=== PATIENT | male | born 1950 | race Caucasian/White ===

== ENCOUNTER 2019-02-12 09:50 | Day surgery (SDC) | payer MEDICARE, OTHER, SELFPAY ==
[2019-02-05 08:13] VITALS: BMI 29.2
[2019-02-12] VITALS (10 sets, daily range): BP systolic 115–138; BP diastolic 72–91; PULSE 50–70; RESP 9–20; TEMP 36–36.4; O2SAT 94–100; BMI 27.9
[2019-02-12] MEDS: LACTATED RINGERS 1,000 ML 42 ML IV ×2 (10:05→14:21)
[2019-02-12] MEDS: CEFAZOLIN 2 GM/100 ML FROZ.PIGGY IV (12:10)
--- NOTE | 2019-02-12 12:36 | SUR.OPER ---
Supine on padded OR bed, head on pillow, arms secured on padded arm boards at <90 degrees abduction, legs uncrossed, safety belt at thigh, tape over blanket over lower legs.
[2019-02-12] MEDS: BUPIVACAINE 0.25% W/ EPI (PF) 10 ML VIAL 20 ML INJ (12:45)
[2019-02-12] MEDS: VANCOMYCIN 1,000 MG VIAL 1000 MG TOP (13:30)
--- NOTE | 2019-02-12 14:34 | P.OP_ITS ---
Operative Date/Time/Diagnoses Date of procedure: 02/12/19 Time of procedure: 13:00 Pre-op diagnosis: Left inguinal hernia Post-op diagnosis: same Procedure & Clinicians Same procedure as scheduled: Yes (Left inguinal hernia with blown out inguinal floor/large direct defect) Surgeon: Jose Elias Simmons Anesthesia Type: General Operative Notes Findings: Large blown out inguinal floor on the left, Christiana type mesh repair Closure Type: primary Specimen(s): none sent Estimated Blood Loss (mL): 5 Procedure in detail: Patient was brought to the operating room he was intubated without incident is prepped and draped in the usual sterile fashion, a time-out was completed. an obliquely oriented incision was carried 2 finger breaths above the inguinal canal. This carried through the skin and subcutaneous tissue Catherine's fascia was divided. The aponeurosis of the external oblique was identified and the external ring was identified. the external ring was quite distended with herniated preperitoneal fat extending below it. the fibers of the external oblique aponeurosis our hydro dissected off of the underlying cord structures by injecting a small amount of local anesthetic. A scalpel was then used to divide these fibers in their line of orientation a Metzenbaum was then slipped into the space and used to dissect away the cord structures from the undersurface of the external oblique fibers. And then these were opened widely exposing the inguinal canal. Two clamps were placed on the inferior and superior aspect of this and [place] was used to dissect the cord structures free. A [place] was placed around them. Inspecting the conjoint tendon and the inguinal floor there was a large blow up essentially between the internal ring and the pubic tubercle where the floor was absent through this protruded a large domed hernia sac this was dissected free from adjacent tissue and reduced into the abdomen. A small Ray-Jayda which was later removed was utilized to hold it in place. I then inspected an indirect hernia sac emanating from the internal ring by dissecting bluntly through the cord structures no sac was identified. There was a somewhat sizable cord lipoma of herniated preperitoneal fat that was excised and removed. was careful to preserve the cord vessels as well as the vas deferens. At this point the pelvic floor was closed utilizing a running 2 0 Vicryl suture attaching what remained of the transversalis/conjoint tendon at the floor. This facilitated the reduction of the large direct hernia. the Ray- Jayda holding the hernia in place was removed before the final sutures were placed in this regard. At this point polypropylene regular weight mesh was brought onto the field and fashioned to fit the dimensions of the area , a 2 0 Prolene suture was utilized to tack the medial aspect to the pubic tubercle with greater than 1 cm of overlap. And then this same suture was used to run the shelving edge is sick simple continuous fashion at the inferior aspect of the mesh was brought at least 3 cm latera of the internal ring. The 2 lateral tails of the hernia mesh were then fashioned to each other using 0 Prolene to form a new internal ring that was snug but not overly tight around the cord structures.. Total of 2 simple interrupted 0 PDS sutures were then used to attach the superior aspect of the mesh to the conjoint tendon. At this point the mesh was inspected was found to lay without significant wrinkling. Then the tails were tucked out further laterally between just deep to the aponeurosis of the external oblique. The area was irrigated with vancomycin laced solution. fibers of the aponeurosis of the external oblique were then closed using running 2 0 Vicryl reapproximating the external ring. S subcutaneous tissue was then copiously irrigated and the wound was closed closing Catherine's layer and then closing skin with a deep dermal to 0 Vicryl layer followed by a of 4 0 monofilament absorbable suture in a subcuticular fashion. Skin glue was applied. Patient was extubated and brought to PACU without incident Complications: none Condition: stable Disposition: PACU
--- NOTE | 2019-02-12 14:38 | SUR.PHASEI ---
0960 Reviewed rhythm strip with Dr. Matos, no concerns/orders regarding T wave. patient arouses spontaneously/intermittently. Denies pain/nausea
[2019-02-12] MEDS: fentaNYL 100 MCG/2 ML INJ 50 MCG IV (14:49)
[2019-02-12] MEDS: OXYCODONE/ACETAMINOPHEN 5/325 TABLET 1 TAB PO (14:51)
--- NOTE | 2019-02-12 15:20 | SUR.PHASEI ---
1514 Stable, oriented, tolerating PO well. Report given. site CDI
== END 2019-02-12 16:00 | disposition home or self-care (01) ==
PROVIDERS: PCP Family Medicine; Visit Provider Surgery
PROC: (CPT 49505; principal; 2019-02-12 11:00)
DX: K40.90 Unilateral inguinal hernia, without obstruction or gangrene, not specified as recurrent (principal); I10 Essential (primary) hypertension; D17.6 Benign lipomatous neoplasm of spermatic cord
CPT/HCPCS: 49505; C1781; J0690; J1100; J1885; J2250; J2405; J2704; J3010

== ENCOUNTER → 2019-02-25 08:22 | Outpatient (CLI) | payer MEDICARE, OTHER, SELFPAY ==
[2019-02-25 09:25] LABS: Add Manual Diff / Slide Review NO; Basophils Absolute Auto 0 /uL (0-100); Basophils Percent Auto 0.6 % (0-2); Eosinophils Absolute Auto 100 /uL (0-450); Eosinophils Percent Auto 1.7 % (2-4); Hematocrit 39.8 % (41-53); Hemoglobin 13.8 g/dL (13.5-17.5); Lymphocytes Absolute Auto 1400 /uL (1100-4500); Lymphocytes Percent Auto 18.4 % (25-40); Mean Corpuscular HGB Conc 34.8 % (30-36); Mean Corpuscular Hemoglobin 31.5 PG (26-34); Mean Corpuscular Volume 90.6 fL (80-100); Monocytes Absolute Auto 600 /uL (0-900); Monocytes Percent Auto 7.9 % (3-14); Neutrophils Absolute Auto 5300 /uL (1500-7000); Neutrophils Percent Auto 71.4 % (50-75); Platelet Count 255 X10^3/uL (150-400); Red Cell Distribution Width 12.4 % (11.6-14.8); White Blood Cell Count 7.4 X10^3/uL (4.5-11.0)
[2019-02-25 10:03] LABS: Alanine Aminotransferase 18 IU/L (21-72); Albumin 4.1 g/dL (3.5-5.0); Albumin Globulin Ratio 1.4 (1.0-2.8); Alkaline Phosphatase 62 U/L (38-126); Aspartate Aminotransferase 26 IU/L (17-59); BUN Creatinine Ratio 22.2 (6-22); Bilirubin Total 0.5 mg/dL (0.2-1.3); Blood Urea Nitrogen 20 mg/dL (9-20); Calcium 9.3 mg/dL (8.4-10.2); Carbon Dioxide 27 mmol/L (22-32); Chloride 102 mmol/L (98-107); Cholesterol 176 mg/dL (140-199); Estimated Glomerular Filt Rate > 60.0 mL/min (>60); Glucose 104 mg/dL (80-110); HDL Cholesterol 55 mg/dL (40-60); HEMOLYSIS < 15 (0-50); LDL Cholesterol Calculated 109 mg/dL (<100); Potassium 4.2 mmol/L (3.4-5.1); Sodium 138 mmol/L (137-145); Total Protein 7.1 g/dL (6.3-8.2); Triglycerides 62 mg/dL (35-150)
[2019-02-25 10:36] LABS: Thyroid Stimulating Hormone 1.88 uIU/mL (0.47-4.68)
[2019-02-25 10:37] LABS: Prostate Specific Antigen Scrn 1.21 ng/mL (0.1-4.0)
== END ==
PROVIDERS: PCP Family Medicine; Visit Provider Family Medicine
DX: Z12.5 Encounter for screening for malignant neoplasm of prostate (principal); E78.2 Mixed hyperlipidemia; I10 Essential (primary) hypertension
CPT/HCPCS: 36415; 80053; 80061; 84443; 85025; G0103

== ENCOUNTER → 2019-10-23 15:40 | Outpatient (CLI) | payer MEDICARE, OTHER, SELFPAY ==
[2019-10-23 16:26] LABS: Influenza A - CEPHEID Flu A NEGATIVE (NEGATIVE); Influenza B - CEPHEID Flu B NEGATIVE (NEGATIVE)
== END ==
PROVIDERS: PCP Family Medicine; Visit Provider Family Medicine
DX: R50.9 Fever, unspecified (principal)
CPT/HCPCS: 87502

== ENCOUNTER → 2021-01-07 16:12 | Outpatient (CLI) | payer MEDICARE, OTHER, SELFPAY ==
[2021-01-07 17:56] LABS: Prostate Specific Antigen 0.888 ng/mL (0.10-4.00)
== END ==
PROVIDERS: PCP Family Medicine; Referring Provider Urology; Visit Provider Urology
DX: Z12.5 Encounter for screening for malignant neoplasm of prostate (principal)
CPT/HCPCS: 36415; 84153; G0103

== ENCOUNTER → 2021-03-24 07:02 | Outpatient (CLI) | payer MEDICARE, OTHER, SELFPAY ==
[2021-03-24 08:16] LABS: Alanine Aminotransferase 15 IU/L (<50); Albumin 3.9 g/dL (3.5-5.0); Albumin Globulin Ratio 1.4 (1.0-2.8); Alkaline Phosphatase 54 U/L (38-126); Aspartate Aminotransferase 35 IU/L (17-59); BUN Creatinine Ratio 22.8 (6-22); Bilirubin Total 0.5 mg/dL (0.2-1.3); Blood Urea Nitrogen 18 mg/dL (9-20); Calcium 9.1 mg/dL (8.4-10.2); Carbon Dioxide 28 mmol/L (22-32); Chloride 104 mmol/L (98-107); Cholesterol 166 mg/dL (140-199); Estimated Glomerular Filt Rate > 60.0 mL/min (>60); Globulin 2.8 g/dL (1.7-4.1); Glucose 100 mg/dL (80-110); HDL Cholesterol 66 mg/dL (40-60); HEMOLYSIS < 15 (0-50); LDL Cholesterol Calculated 91 mg/dL (<100); Potassium 4.3 mmol/L (3.4-5.1); Sodium 137 mmol/L (137-145); Total Protein 6.7 g/dL (6.3-8.2); Triglycerides 43 mg/dL (35-150)
== END ==
PROVIDERS: PCP Family Medicine; Referring Provider Family Medicine; Visit Provider Family Medicine
DX: I10 Essential (primary) hypertension (principal); E78.2 Mixed hyperlipidemia
CPT/HCPCS: 36415; 80053; 80061

== ENCOUNTER → 2021-05-10 12:38 | Outpatient (ROUT) | payer MEDICARE, OTHER, SELFPAY | PROVIDERS: PCP Family Medicine; Visit Provider Dermatology | DX: L03.90 Cellulitis, unspecified (principal); L01.00 Impetigo, unspecified | CPT/HCPCS: 87070; 87075; 87077; 87147; 87186; 87205 ==

== ENCOUNTER → 2021-05-11 09:57 | Outpatient (CLI) | payer MEDICARE, OTHER, SELFPAY ==
[2021-05-11 11:09] LABS: COVID19 -Nasal RAPID Negative (Negative)
== END ==
PROVIDERS: PCP Family Medicine; Visit Provider Surgery
DX: Z20.822 Contact with and (suspected) exposure to COVID-19 (principal)
CPT/HCPCS: 87635; C9803

== ENCOUNTER → 2021-06-15 09:20 | Outpatient (CLI) | payer MEDICARE, OTHER, SELFPAY ==
[2021-06-15 11:34] LABS: COVID19 -Nasal RAPID Negative (Negative)
== END ==
PROVIDERS: PCP Family Medicine; Visit Provider Surgery
DX: Z01.812 Encounter for preprocedural laboratory examination (principal); Z20.822 Contact with and (suspected) exposure to COVID-19
CPT/HCPCS: 87635; C9803

== ENCOUNTER 2021-06-16 12:42 | Day surgery (SDC) | payer MEDICARE, OTHER, SELFPAY ==
--- NOTE | 2021-06-16 | PATH_ITS ---
[facility] Accession Number: [id number] . 01 Material submitted: . colon - TRANSVERSE COLON . 02 Diagnosis: Transverse Colon, Biopsy: Sessile serrated adenoma. MRV 06/21/2021 1159 Local . 02 Electronically signed: . Nilda Morrell MD, Pathologist NPI- [id number] . 01 Gross description: . TRANSVERSE COLON: Received in formalin is 1 fragment(s) of lema, soft tissue measuring 0.2 x 0.1 x 0.1 cm submitted entirely in 1 cassette(s) /RL 06/17/2021 0341 Local . 02 Pathologist provided ICD-10: D12.3 . 02 CPT . 074337 Performed at: 01 [facility] [address] [id number] MD Bobby Monteiro MD Phone: [phone] Performed at: 02 [facility] [address] [place], [place] [id number] MD Nilda Morrell MD Phone: [phone]
[2021-06-16 13:20] VITALS: BP 133/78; PULSE 49; RESP 14; TEMP 36.3; O2SAT 100
[2021-06-16 13:22] VITALS: BMI 28.4
[2021-06-16] MEDS: LACTATED RINGERS 1,000 ML 42 ML IV (13:42)
--- NOTE | 2021-06-16 13:42 | PM.HP.1 ---
History of Present Illness History of Present Illness Date Patient Seen: 06/16/21 Time Patient Seen: 13:42 Chief complaint: SDC Narrative: The patient presents for colorectal sreening. Previous colonoscopy 5 years ago demonstrated benign polyps. No personal or family history of colon cancer. On further history denies any recent gastrointestinal symptoms. No nausea, vomiting, abdominal pain, loss of appetite, unexplained weight loss, change in bowel habits, diarrhea, constipation, melena, hematochezia, or bright red blood per rectum. Patient History Medical History Alcohol abuse (2001) Anemia Atrial fibrillation (2001) BCC (basal cell carcinoma of skin) (~2007) Chicken pox (~1958) Depression (2001) Heavy cigarette smoker (2001) History of SCC (squamous cell carcinoma) of skin (~2007) Measles (~1957) Mumps (~1955) Prostatitis (~1975) SCC (squamous cell carcinoma) Spiral fracture of shaft of tibia (~1957) Tibial plateau fracture, right (~1992) UTI (urinary tract infection) Surgical History Anesthesia History of surgery (1992) History of surgery (1994) History of tonsillectomy Status post hernia repair (1999) Family & Social History Family History Child Age: 33 Overweight Diabetes mellitus Child Age: 31 Overweight Mother Alzheimer's dementia Social History: household members spouse lives independently Yes Tobacco & Substance use: Smoking Status Former smoker alcohol intake current alcohol intake frequency 0-2 drinks per day Substance Use Type does not use Meds Home Medications and Allergies Home Medications Medication Instructions Recorded Confirmed Type lisinopril 10 mg tablet 10 mg PO DAILY #90 tab 03/03/21 Rx lovastatin 10 mg tablet 10 mg PO BEDTIME #90 tab 03/03/21 Rx Allergies Allergy/AdvReac Type Severity Reaction Status Date / Time Penicillins [PENICILLINS] Allergy Mild unknown Verified 02/25/19 11:23 reaction as child, since has had B-lactams w/o issue Exam Vital Signs (past 8 hours): - 06/16/21 13:20 Temperature 97.4 F L Pulse Rate 49 L Respiratory Rate 14 Blood Pressure 133/78 Pulse Oximetry 100 Oxygen Delivery Method Room Air Narrative Exam Narrative: Constitutional-he is oriented to person, place and time. No apparent distress Cardiovascular- regular rate, no peripheral edema Pulmonary-unlabored respiratory effort, no audible wheezing Abdominal-soft, non-tender, non-distended Musculoskeletal-no cyanosis or clubbing Neurological-nonfocal, normal strength throughout, normal gait. Skin-warm and dry Assessment & Plan Assessment & Plan narrative: The patient requires colorectal screening and colonoscopy is recommended. Technical details were discussed. Risks, benefits, alternatives explained. Risks including but not limited to myocardial infarction, aspiration, bleeding, pain, missed lesion, incomplete examination, need for further radiographic studies, colonic perforation, and need for major abdominal surgery were discussed. All questions were answered to their satisfaction, and they are in agreement with this plan. Time Spent With Patient Critical Care time: I spent a total of [] minutes of critical care time on this patient's care today; this time is exclusive of procedural time.
[2021-06-16] MEDS: MIDAZOLAM 5 MG/5 ML VIAL IV (13:45)
[2021-06-16] MEDS: fentaNYL 250 MCG/5 ML INJ IV (13:45)
--- NOTE | 2021-06-16 14:16 | PM.OP.ENDO ---
Operative Date/Time/Diagnoses Date of procedure: 06/16/21 Time of procedure: 14:16 Pre-op diagnosis: Personal history of colonic polyps Post-op diagnosis: same Procedure & Clinicians Study performed: Colonoscopy and polypectomy Same procedure as scheduled: Yes Indications: Personal history of colonic polyps Surgeon: Marc Blackwood Procedure Notes Procedure in detail: Medications: Conscious sedation using 5mg IV midazolam and 200 mcg IV of fentanyl The history and physical was performed/updated and the patient is ASA class is 2. The procedure was discussed in detail with the patient. Potential risks complications including infection, bleeding, missed diagnosis, perforation, need for surgery, and were explained. Their questions were answered and informed consent was obtained. Patient was brought to the procedure room and placed standard monitoring equipment. The patient's vital signs were monitored continuously throughout the entire procedure. Prior to starting time-out was performed. The patient was placed in the left lateral recumbent position. Procedural sedation was administered. Examination began with a thorough inspection of the perianal area there was no evidence of fissures, fistulae, external hemorrhoids or cutaneous malignancy. The colonoscopy scope was then placed into the anal canal and was advanced to the cecum, which was identified by the ileocecal valve, the appendiceal orifice and the confluence of the taenia. The scope was then slowly withdrawn examining colon thoroughly in all directions, irrigating it of any residual stool. FINDINGS 1. 5 mm polyp within the transverse colon removed with biopsy forceps 2. Sigmoid diverticulosis The patient tolerated the procedure well. They will be discharged once criteria are met. The prep was of good/excellent quality. The withdrawl time was 6minutes. The sedation time was 28 minutes. Specimen(s): other (Transverse colon) Impression: Colonic polyp Post-procedure Recommendations: Colonscopy in 5 years Disposition: same day surgery
[2021-06-16 14:22] VITALS: BP 118/74; PULSE 57; RESP 17; TEMP 36.5; O2SAT 98
[2021-06-16 14:24] VITALS: BP 109/74; PULSE 57; RESP 13; O2SAT 97
== END 2021-06-16 14:49 | disposition home or self-care (01) ==
PROVIDERS: PCP Family Medicine; Referring Provider Surgery; Visit Provider Surgery
PROC: 0DJD8ZZ Inspection of Lower Intestinal Tract, Via Natural or Artificial Opening Endoscopic (ICD-10-PCS; CPT 45378; principal; 2021-06-16 13:45)
DX: Z12.11 Encounter for screening for malignant neoplasm of colon (principal); Z86.010 Personal history of colon polyps; K57.30 Diverticulosis of large intestine without perforation or abscess without bleeding; D12.3 Benign neoplasm of transverse colon
CPT/HCPCS: 45380; 99152; 99153; J2250; J3010

== ENCOUNTER → 2021-09-06 09:21 | Outpatient (CLI) | payer MEDICARE, OTHER, SELFPAY ==
--- NOTE | 2021-09-06 09:23 | DI.RAD.S_ITS ---
PROCEDURE: XR ANKLE LT MIN 3V INDICATIONS: ankle pain TECHNIQUE: 3 views of the ankle were acquired. COMPARISON: None. FINDINGS: Bones: No fractures or dislocations. Osteoarthritic changes are noted in tibiotalar and subtalar joints. Ankle mortise is normally aligned. Small plantar calcaneal enthesophyte is seen. No suspicious bony lesions. Soft tissues: No tibiotalar joint effusion. Achilles tendon appears normal. IMPRESSION: Ankle joint osteoarthritis. No fracture or dislocation. Intact ankle mortise. Dictated by: Gage Dan M.D. on 09/06/2021 at 9:49 Approved by: Gage Dan M.D. on 09/06/2021 at 10:21
== END ==
PROVIDERS: PCP Family Medicine; Referring Provider Nurse Practitioner Family; Visit Provider Nurse Practitioner Family
DX: M19.072 Primary osteoarthritis, left ankle and foot (principal); M25.572 Pain in left ankle and joints of left foot
CPT/HCPCS: 73610

== ENCOUNTER 2022-06-12 01:51 | Emergency (ER) | payer MEDICARE, OTHER, SELFPAY ==
[2022-06-12 01:57] VITALS: BP 161/98
[2022-06-12 01:58] VITALS: PULSE 78; O2SAT 99
[2022-06-12 02:00] VITALS: BP 153/93; PULSE 82; RESP 12; O2SAT 100
[2022-06-12 02:03] VITALS: BP 161/78; PULSE 82; RESP 18; TEMP 36.6; O2SAT 99; BMI 27.8
--- NOTE | 2022-06-12 02:06 | DI.RAD.S_ITS ---
PROCEDURE: XR CHEST 1V INDICATIONS: chest pain TECHNIQUE: One view of the chest was acquired. COMPARISON: [facility], , CHEST 2 VIEW, 07/23/2015, 9:55. FINDINGS: Surgical changes and devices: None. Lungs and pleura: Lungs are clear. No pleural effusions or pneumothorax. Mediastinum: Mediastinal contours appear normal. Heart size is normal. Bones and chest wall: No suspicious bony lesions. Overlying soft tissues appear unremarkable. IMPRESSION: No acute cardiopulmonary findings. Dictated by: Sherrie Galvez M.D. on 06/12/2022 at 8:15 Approved by: Sherrie Galvez M.D. on 06/12/2022 at 8:15
[2022-06-12 02:26] LABS: Add Manual Diff / Slide Review NO; Basophils Absolute Auto 0 /uL (0-100); Basophils Percent Auto 0.6 % (0-2); Eosinophils Absolute Auto 100 /uL (0-450); Eosinophils Percent Auto 1.5 % (2-4); Hematocrit 39.6 % (41-53); Hemoglobin 13.5 g/dL (13.5-17.5); Lymphocytes Absolute Auto 1900 /uL (1100-4500); Lymphocytes Percent Auto 32.2 % (25-40); Mean Corpuscular HGB Conc 34.1 % (30-36); Mean Corpuscular Hemoglobin 30.7 PG (26-34); Monocytes Absolute Auto 600 /uL (0-900); Monocytes Percent Auto 10.8 % (3-14); Neutrophils Absolute Auto 3200 /uL (1500-7000); Neutrophils Percent Auto 54.9 % (50-75); Platelet Count 198 X10^3/uL (150-400); Red Cell Distribution Width 12.8 % (11.6-14.8); White Blood Cell Count 5.8 X10^3/uL (4.5-11.0)
[2022-06-12 02:30] VITALS: PULSE 59; RESP 14; O2SAT 99
[2022-06-12 02:33] LABS: Alanine Aminotransferase 15 IU/L (<50); Albumin 4.1 g/dL (3.5-5.0); Albumin Globulin Ratio 1.4 (1.0-2.8); Alkaline Phosphatase 57 U/L (38-126); Aspartate Aminotransferase 28 IU/L (17-59); BUN Creatinine Ratio 23.4 (6-22); Bilirubin Total 0.5 mg/dL (0.2-1.3); Blood Urea Nitrogen 18 mg/dL (9-20); Calcium 8.6 mg/dL (8.4-10.2); Carbon Dioxide 23 mmol/L (22-32); Chloride 107 mmol/L (98-107); Creatine Kinase 151 U/L (55-170); Estimated Glomerular Filt Rate > 60 mL/min (>60); Glucose 96 mg/dL (80-110); HEMOLYSIS < 15 (0-50); Lipase 88 U/L (23-300); Magnesium 2.1 mg/dL (1.6-2.3); Potassium 3.6 mmol/L (3.4-5.1); Sodium 136 mmol/L (137-145); Total Protein 7.1 g/dL (6.3-8.2)
[2022-06-12 02:44] LABS: Troponin I < 0.012 ng/mL (0.01-0.034)
--- NOTE | 2022-06-12 02:44 | ED.ARRPALP ---
HPI - Arrhythmia/Palpitations General Chief Complaint: Arrhythmia/Palpitations Stated Complaint: irregular heartbeat Time Seen by Provider: 06/12/22 02:05 Source: patient Mode of arrival: Ambulatory History of Present Illness HPI narrative: 72-year-old male former smoker with history of hypertension, hyperlipidemia and prior episodes of atrial fibrillation about 20 years ago presents with his in the chief complaint of a few days of irregular heart rhythm and palpitations with occasional lightheadedness. He denies any chest pain or shortness of breath. He is had no fever or chills nor nausea or vomiting. He states that he has been under a fairly decent amount of stress but denies any other obvious potential triggers. He is had no significant dietary or medication change. Related Data Previous Rx's Medication Instructions Recorded diclofenac sodium 1 % topical gel 2 g topical QID #100 grams 09/06/21 nirmatrelvir 300 mg (150 mg See Rx Instructions PO .COMPLEX 03/15/22 x2)-ritonavir 100 mg tablet,dose #30 tabs pack(EUA) (Paxlovid) lisinopril 10 mg tablet See Rx Instructions .Route 03/28/22 .COMPLEX #90 tabs lovastatin 10 mg tablet See Rx Instructions .Route 03/28/22 .COMPLEX #90 tabs apixaban 5 mg tablet (Eliquis) 5 mg PO BID #60 tabs 06/12/22 Allergies Allergy/AdvReac Type Severity Reaction Status Date / Time Penicillins [PENICILLINS] Allergy Mild unknown Verified 06/12/22 02:06 reaction as child, since has had B-lactams w/o issue Review of Systems Review of Systems Narrative: GENERAL: Denies chills, fatigue, malaise, fever, sweats. HEENT: Denies sinus pain, ear pain, sore throat, difficulty swallowing, dizziness. RESPIRATORY: Denies dyspnea, cough, wheezing, hemoptysis, sputum. CARDIOVASCULAR: See HPI GASTROINTESTINAL: Denies nausea, vomiting, abdominal pain, diarrhea, constipation, melena. : Denies dysuria, frequency, incontinence, hematuria, urinary retention. MUSCULOSKELETAL: denies weakness, joint pain, or bony pain SKIN: Denies rash, skin lesions, or other NEUROLOGIC: Denies weakness, headache, numbness, change in speech, confusion, seizures, incoordination. PSYCHIATRIC: No concerning psychosocial issues. 12 point review of systems is negative except for those stated above Patient History Medical History (Updated 06/12/22 @ 02:51 by Dariusz Zabala DO) Alcohol abuse (2001) Anemia Atrial fibrillation (2001) BCC (basal cell carcinoma of skin) (~2007) Chicken pox (~1958) Depression (2001) Heavy cigarette smoker (2001) History of SCC (squamous cell carcinoma) of skin (~2007) Measles (~1957) Mumps (~1955) Prostatitis (~1975) SCC (squamous cell carcinoma) Spiral fracture of shaft of tibia (~1957) Tibial plateau fracture, right (~1992) UTI (urinary tract infection) Surgical History Anesthesia History of surgery (1992) History of surgery (1994) History of tonsillectomy Status post hernia repair (1999) Family History Child Age: 34 Overweight Diabetes mellitus Child Age: 32 Overweight Mother Alzheimer's dementia Social History marital status: number of children: 2 household members: spouse lives independently: Yes education level: college occupational status: other (retired) Smoking Status: Former smoker alcohol intake: current substance use type: does not use Smoking Status: Former smoker alcohol intake frequency: 0-2 drinks per day Alcohol type: wine Substance Use Type: does not use Exam Narrative Exam Narrative: GENERAL: [72] year old patient appears stated age. Well-developed patient, in mild distress. HEAD: Atraumatic. Normocephalic. EYES: Pupils equal round and reactive. Extraocular motions intact. No scleral icterus. No injection or drainage. ENT: Nose without bleeding, purulent drainage. Throat without erythema, tonsillar hypertrophy or exudate. Airway patent. NECK: Trachea midline. Non tender CARDIOVASCULAR: Irregularly irregular rhythm without murmurs, gallops, or rubs. RESPIRATORY: Clear to auscultation. Breath sounds equal bilaterally. No wheezes, rales, or rhonchi. GASTROINTESTINAL: Abdomen soft, non-tender, nondistended. EXTREMITIES: No edema or joint tenderness. BACK: Nontender without deformity or crepitance. No flank tenderness. NEURO: AOx3. SKIN: No rash or erythema of visible areas Initial Vital Signs Initial Vital Signs: Vital Signs Blood Pressure 161/98 H 06/12/22 01:57 Scores CHADS-VASc Congestive heart failure: no Hypertension: yes Age 75 years or older: no Diabetes mellitus: no Stroke, TIA, or TE: no Vascular disease: no Age 65 to 74 years: yes Sex category (female): Male CHADS-VASc Score: 2 Course Orders Ordered: Discontinued Medications Apixaban (Apixaban 5 Mg Tablet) 5 mg PO NOW ONE Stop: 06/12/22 03:14 Last Admin: 06/12/22 03:20 Dose: 5 mg Documented By: MARJORIE Vital Signs Vital signs: Vital Signs - 8 hr 06/12/22 02:03 06/12/22 01:57 06/12/22 01:58 Temperature 98 F Pulse Rate 82 78 Respiratory Rate 18 Blood Pressure 161/78 H 161/98 H Pulse Oximetry 99 99 Oxygen Delivery Method Room Air 06/12/22 02:00 06/12/22 02:00 Temperature Pulse Rate 82 Respiratory Rate 12 Blood Pressure 153/93 H Pulse Oximetry 100 Oxygen Delivery Method MDM - Arrhythmia/Palpitations Lab Data Result diagrams: 06/12/22 02:15 06/12/22 02:15 Labs: Lab Results 06/12/22 06/12/22 06/12/22 Range/Units 02:15 02:15 02:15 WBC 5.8 (4.5-11.0) X10^3/uL RBC 4.40 L (4.5-5.9) X10^6/uL Hgb 13.5 (13.5-17.5) g/dL Hct 39.6 L (41-53) % MCV 90.0 (80-100) fL MCH 30.7 (26-34) PG MCHC 34.1 (30-36) % RDW 12.8 (11.6-14.8) % Plt Count 198 (150-400) X10^3/uL Neut % (Auto) 54.9 (50-75) % Lymph % (Auto) 32.2 (25-40) % [place] % (Auto) 10.8 (3-14) % Eos % (Auto) 1.5 L (2-4) % Baso % (Auto) 0.6 (0-2) % Neut # (Auto) 3200 (7218-7708) /uL Lymph # (Auto) 1900 (2763-3936) /uL [place] # (Auto) 600 (0-900) /uL Eos # (Auto) 100 (0-450) /uL Baso # (Auto) 0 (0-100) /uL Sodium 136 L (137-145) mmol/L Potassium 3.6 (3.4-5.1) mmol/L Chloride 107 (98-107) mmol/L Carbon Dioxide 23 (22-32) mmol/L BUN 18 (9-20) mg/dL Creatinine 0.77 (0.66-1.25) mg/dL Estimated GFR > 60 (>60) mL/min BUN/Creatinine Ratio 23.4 H (6-22) Glucose 96 (80-110) mg/dL Calcium 8.6 (8.4-10.2) mg/dL Magnesium 2.1 (1.6-2.3) mg/dL Total Bilirubin 0.5 (0.2-1.3) mg/dL AST 28 (17-59) IU/L ALT 15 (<50) IU/L Alkaline Phosphatase 57 (38-126) U/L Total Creatine Kinase 151 (55-170) U/L CK-MB (CK-2) 2.04 (<2.37) ng/mL CK-MB (CK-2) Rel Index 1.4 L (1.5-5.0) % Troponin I < 0.012 (0.01-0.034) ng/mL Total Protein 7.1 (6.3-8.2) g/dL Albumin 4.1 (3.5-5.0) g/dL Globulin 3.0 (1.7-4.1) g/dL Albumin/Globulin Ratio 1.4 (1.0-2.8) Lipase 88 (23-300) U/L TSH 3.40 (0.47-4.68) uIU/mL ECG Data Interpretation: EKG demonstrates AFib with a rate of 79 and no other obvious ectopy.. No ST segmental elevation or depression. No T wave inversions Discharge Plan Departure Patient Disposition: Home Clinical Impression: Atrial fibrillation by electrocardiogram Instructions: DI for Atrial Fibrillation Activity Restrictions/Additional Instructions: *You have been diagnosed with [ atrial fibrillation] *What to do: *Please continue to take your regular medications as directed. [ x] New medication prescriptions sent to your pharmacy: [ [facility]] [ ] New medication written as a paper prescription [ ] No new medications given *Please follow up with Dr. Alvarenga of [facility], call for an appointment. Let them know you were seen in the Emergency Department and that we ask that you be seen in follow up. We will electronically transmit a record of today's note *Return to Emergency Department if you should have any new, worsening or concerning symptoms, such as [fever greater than 101 F, shaking chills, worsening pain, persistent vomiting or other bothersome symptoms] Prescriptions: New Eliquis 5 mg tablet 5 mg PO BID Qty: 60 0RF No Action diclofenac sodium 1 % gel 2 g topical QID Qty: 100 0RF Rx Instructions: apply to left ankle Paxlovid (EUA) 150 mg x 2- 100 mg tablet See Rx Instructions PO .COMPLEX Qty: 30 0RF Rx Instructions: take TWO 150 mg tablets of nirmatrelvir with ONE 100 mg tablet of ritonavir twice daily for 5 days PO lisinopril 10 mg tablet See Rx Instructions .ROUTE .COMPLEX Qty: 90 1RF Dose Instruction: TAKE 1 TABLET BY MOUTH DAILY Rx Instructions: TAKE 1 TABLET BY MOUTH DAILY lovastatin 10 mg tablet See Rx Instructions .ROUTE .COMPLEX Qty: 90 1RF Dose Instruction: TAKE 1 TABLET BY MOUTH AT BEDTIME Rx Instructions: TAKE 1 TABLET BY MOUTH AT BEDTIME Referrals: Domenico Alvarenga DO [Physician] - Nurys Wilson DO [Primary Care Provider] - Visit Report Forms: Patient Portal/API
[2022-06-12 02:47] LABS: CKMB % Relative Index 1.4 % (1.5-5.0); Creatine Kinase MB 2.04 ng/mL (<2.37)
[2022-06-12 03:00] VITALS: PULSE 75; O2SAT 97
[2022-06-12] MEDS: APIXABAN 5 MG TABLET PO (03:20)
== END 2022-06-12 03:35 | disposition home or self-care (01) ==
PROVIDERS: Emergency Provider Emergency Medicine; PCP Family Medicine
DX: I48.91 Unspecified atrial fibrillation (principal); Z79.01 Long term (current) use of anticoagulants
CPT/HCPCS: 36415; 71045; 80053; 82550; 82553; 83690; 83735; 84443; 84484; 85025; 93005; 99284

== ENCOUNTER → 2022-09-14 07:01 | Outpatient (CLI) | payer MEDICARE, OTHER, SELFPAY ==
[2022-09-14 08:12] LABS: Cholesterol 167 mg/dL (140-199); HDL Cholesterol 62 mg/dL (40-60); HEMOLYSIS < 15 (0-50); LDL Cholesterol Calculated 96 mg/dL (<100); Magnesium 2.1 mg/dL (1.6-2.3); Potassium 4.5 mmol/L (3.4-5.1); Triglycerides 47 mg/dL (35-150)
[2022-09-14 08:50] LABS: TSH w/ Reflex to FT4 1.69 uIU/mL (0.47-4.68)
== END ==
PROVIDERS: PCP Family Medicine; Referring Provider Internal Medicine Cardiovascular Disease; Visit Provider Internal Medicine Cardiovascular Disease
DX: I48.91 Unspecified atrial fibrillation (principal); E78.5 Hyperlipidemia, unspecified; I48.0 Paroxysmal atrial fibrillation
CPT/HCPCS: 36415; 80061; 83735; 84132; 84443

== ENCOUNTER → 2022-09-27 07:03 | Outpatient (CLI) | payer MEDICARE, OTHER, SELFPAY ==
--- NOTE | 2022-09-27 | DI.ECHO.S_ITS ---
[facility] +---------+ : : [address] : : : : [id number] : : : : Phone: [phone]+ Echocardiogram Report + + :Name: KATIE DOWNING Study Date: 09/27/2022 Height: 77 in : :[facility] ReadingLocation: Weight: 225 lb : : Gender: Male BSA: 2.4 m2 : :: 1950 Age: 72 yrs BP: 110/71 mmHg: :Reason For Study: CHEST PAIN : :Ordering Physician: MANDY, : :LYNNE Larios Performed By: Allyssa Granados : :Referring: LYNNE ABREU : + + Interpretation Summary The ejection fraction is estimated to be 55-60%. Diastolic parameters suggest probable normal left ventricular diastolic function and normal filling pressures. The left atrium is mildly dilated. The right ventricle is normal in size and function. No significant valvular abnormalities. Unable to estimate PASP. Procedure: A two-dimensional transthoracic echocardiogram with color flow and Doppler was performed. The study quality was technically adequate. There is no prior echocardiogram noted for this patient. The patient was in sinus bradycardia with heart rates between 47-52 bpm during the exam. Left Ventricle: The left ventricle is normal in size and wall thickness. The ejection fraction is estimated to be 55-60%. Diastolic parameters suggest probable normal left ventricular diastolic function and normal filling pressures. Right Ventricle: The right ventricle is normal in size and function. Atria: The left atrium is mildly dilated. Right atrial size is normal. There is no Doppler evidence for an interatrial shunt. Mitral Valve: The mitral valve is normal in structure and function. There is trace mitral regurgitation. Aortic Valve: The aortic valve is not well visualized. The aortic valve opens well. There is no aortic valve stenosis. No aortic regurgitation is present. Tricuspid Valve: The tricuspid valve is normal in structure and function. There is trace tricuspid regurgitation. Pulmonary artery pressures cannot be estimated because of the lack of a measurable TR jet velocity. Pulmonic Valve: The pulmonic valve is not well visualized. There is no pulmonic valvular regurgitation. Great Vessels: The aortic root is normal size. The dimensions of the ascending aorta are normal. The IVC is of normal diameter and collapses greater than 50% with a sniff. This suggests a low right atrial pressure of 3 mm Hg. Pericardium/ Pleura There is no pericardial effusion. There is no pleural effusion. MMode/2D Measurements & Calculations LVIDd: 5.3 cm LVOT diam: 2.5 cm LVIDs: 3.4 cm Ao root diam: 3.8 cm FS: 34.8 % asc Aorta Diam: 3.7 cm IVSd: 1.1 cm Ao Arch Diam (Prox Trans): 2.9 cm LVPWd: 0.97 cm LV spaulding. diameter/BSA (cm/m^2): 2.2 LV sys. diameter/BSA (cm/m^2): 1.5 LA A2 area: 24.3 cm2 RA long axis: 5.9 cm LA A4 area: 21.3 cm2 RA area: 19.7 cm2 LA length (vol): 5.3 cm RA vol: 55.4 ml LA vol: 82.7 ml RA : 23.6 ml/m2 LA vol index: 35.2 ml/m2 IVC diam: 1.8 cm RVD1 (basal): 4.0 cm RVD2 (mid): 3.5 cm Doppler Measurements & Calculations Ao V2 max: 120.8 cm/sec LVOT Max Leonard: 107.7 cm/sec Ao V2 mean: 80.0 cm/sec LV V1 max P.6 mmHg Ao max P.8 mmHg LV V1 VTI: 25.4 cm Ao mean P.1 mmHg RL(I,D): 4.4 cm2 Ao V2 VTI: 28.6 cm RL(V,D): 4.4 cm2 sev ratio: 0.89 RL indexed to BSA (cm^2/m^2): 1.9 MV E max leonard: 74.1 cm/sec PA V2 max: 81.7 cm/sec MV A max leonard: 53.4 cm/sec PA V2 mean: 59.4 cm/sec MV E/A: 1.4 PA mean P.6 mmHg Med Peak E' Leonard: 7.5 cm/sec E/E' med: 9.8 Lat Peak E' Leonard: 10.1 cm/sec E/E' lat: 7.3 E/e' average: 8.6 MV dec time: 0.31 sec SV([facility]): 126.7 ml Reading Physician:03:42 PM
[2022-09-27 07:58] LABS: COVID19 -Nasal RAPID Negative (Negative)
--- NOTE | 2022-09-28 19:01 | DI.NM.S_ITS ---
DATE OF SERVICE: 09/27/2022 PROCEDURE PERFORMED: Exercise treadmill stress and rest myocardial perfusion imaging with gating to assess ejection fraction and regional wall motion. ORDERING PROVIDER: Dr. Lynne Abreu. INDICATIONS: The patient is a 72-year-old male with recent paroxysmal atrial fibrillation. EXERCISE TREADMILL TESTING: The patient was able to exercise for 7 minutes, 31 seconds on a standard Alex protocol, suggesting good exercise capacity with an TRINO of -10%. He had a normal hemodynamic response, achieving a maximum heart rate of 158 BPM (106% of his predicted maximum). He had no chest discomfort or other anginal symptoms. His resting ECG shows sinus rhythm with normal ST segments. While there is some mild ST depression with exercise, these resolved within 1 minute of recovery and thus is nonspecific for ischemia. There were no arrhythmias. At 6 minutes, 25 seconds of exercise at a heart rate of 130 bpm, 24.4 millicuries of technetium-99m Myoview was injected and he was imaged 10 minutes later using a gated SPECT acquisition protocol. The day prior while at rest, he had been injected with 24.9 millicuries of technetium-99m Myoview and he was imaged 20 minutes later, again using a gated SPECT acquisition protocol. FINDINGS: 1. Raw data: There is fair myocardial tracer uptake with some evidence for diaphragmatic attenuation and there is some slight motion noted, predominantly on the resting images. The gating appears to be somewhat off-sequence, producing a short systolic interval. The lung/heart ratio is normal at 0.29 with a normal TID ratio of 0.98. 2. Quantitated gated SPECT: Post-stress ejection fraction is estimated at 61% without any focal wall motion abnormality, although gating is somewhat compromised by the short systolic duration. The resting ejection fraction is calculated at 50%, although visually appears very similar to that of the post- stress ejection fraction. Resting end-diastolic volume is mildly increased at 147 mL. 3. Myocardial perfusion imaging: Post-stress supine images shows a mild perfusion defect in the mid to distal inferior wall in a pattern consistent with diaphragmatic attenuation, supported by its complete resolution on the prone images. The resting images show an identical perfusion pattern without any clear areas of improvement. IMPRESSION: 1. Normal myocardial perfusion study. 2. Mild fixed inferior perfusion defect that resolves on prone imaging, consistent with diaphragmatic attenuation artifact. There is no evidence for significant myocardial ischemia or previous myocardial infarction. 3. Probable normal left ventricular systolic function with mild with borderline increased left ventricular volumes although the gated data is somewhat compromised by a short systolic duration. 4. Good exercise capacity without angina and only mild, nonspecific ST-segment abnormalities that resolved promptly in recovery. There were no arrhythmias. Nayan Pichardo - DELANEY/henry/steven doc#: [id number]/job#: [id number] dd: 09/28/2022 17:18:00 dt: 09/28/2022 18:44:00 DICTATING /COPIES TO: Asif Leon MD COPIES MNE: ALISSA;
== END ==
PROVIDERS: PCP Family Medicine; Referring Provider Internal Medicine Cardiovascular Disease; Visit Provider Internal Medicine Cardiovascular Disease
DX: R07.9 Chest pain, unspecified (principal); Z20.822 Contact with and (suspected) exposure to COVID-19; I48.91 Unspecified atrial fibrillation
CPT/HCPCS: 78452; 87635; 93017; 93306; A9502

== ENCOUNTER → 2023-03-20 07:12 | Outpatient (CLI) | payer MEDICARE, OTHER, SELFPAY ==
[2023-03-20 08:06] LABS: Add Manual Diff / Slide Review NO; Basophils Absolute Auto 0 /uL (0-100); Basophils Percent Auto 0.4 % (0-2); Eosinophils Absolute Auto 100 /uL (0-450); Eosinophils Percent Auto 1.4 % (2-4); Hematocrit 38.1 % (41-53); Hemoglobin 13.1 g/dL (13.5-17.5); Lymphocytes Absolute Auto 1300 /uL (1100-4500); Lymphocytes Percent Auto 23.7 % (25-40); Mean Corpuscular HGB Conc 34.5 % (30-36); Mean Corpuscular Hemoglobin 31.3 PG (26-34); Mean Corpuscular Volume 90.9 fL (80-100); Monocytes Absolute Auto 500 /uL (0-900); Monocytes Percent Auto 9.9 % (3-14); Neutrophils Absolute Auto 3600 /uL (1500-7000); Neutrophils Percent Auto 64.6 % (50-75); Platelet Count 203 X10^3/uL (150-400); Red Blood Cell Count 4.19 X10^6/uL (4.5-5.9); Red Cell Distribution Width 13.1 % (11.6-14.8); White Blood Cell Count 5.5 X10^3/uL (4.5-11.0)
[2023-03-20 08:44] LABS: BUN Creatinine Ratio 27.8 (6-22); Blood Urea Nitrogen 20 mg/dL (9-20); Calcium 8.8 mg/dL (8.4-10.2); Carbon Dioxide 27 mmol/L (22-32); Chloride 103 mmol/L (98-107); Estimated Glomerular Filt Rate > 60 mL/min (>60); Glucose 94 mg/dL (80-110); HEMOLYSIS < 15 (0-50); Potassium 4.5 mmol/L (3.4-5.1); Sodium 134 mmol/L (137-145)
[2023-03-20 09:42] LABS: Appearance Urine UA CLEAR; Bilirubin Urine UA NEGATIVE (NEGATIVE); Color Urine UA YELLOW; Glucose Urine UA NEGATIVE (Negative); Ketones Urine UA NEGATIVE (NEGATIVE); Leukocyte Esterase Urine UA NEGATIVE (NEGATIVE); Nitrite Urine UA NEGATIVE (Negative); Occult Blood Urine UA NEGATIVE (Negative); Protein Urine UA NEGATIVE (Negative); Specific Gravity Urine UA 1.025 (1.000-1.035); Urobilinogen Urine UA 0.2 E.U./dL (0.2); pH Urine UA 5.5 (4.5-8.0)
[2023-03-20 09:49] LABS: RBC Urine 0-1/HPF (0-5/HPF)
[2023-03-20 09:50] LABS: Bacteria Urine Few (2-10); Culture Indicated Urine Cult Not Indicated; Squamous Epithelial Cell Urine 1-5 /HPF (0-5/HPF); WBC Urine 1-5/HPF (0-5/HPF)
[2023-03-21 05:44] LABS: x Labcorp Estim. Avg Glu (eAG) 117 mg/dL (.); x Labcorp Hemoglobin A1c 5.7 % (4.8-5.6)
== END ==
PROVIDERS: PCP Family Medicine; Referring Provider Orthopaedic Surgery; Visit Provider Orthopaedic Surgery
DX: Z01.818 Encounter for other preprocedural examination (principal); R73.9 Hyperglycemia, unspecified; Z01.812 Encounter for preprocedural laboratory examination; N39.0 Urinary tract infection, site not specified
CPT/HCPCS: 36415; 80048; 81001; 83036; 85025; 93005; 93010

== ENCOUNTER → 2023-03-27 12:42 | Outpatient (CLI) | payer MEDICARE, OTHER, SELFPAY ==
--- NOTE | 2023-03-27 | DI.MRI.S_ITS ---
PROCEDURE: MR SHOULDER RT WO CON INDICATIONS: rotator cuff tear or rupture of right shoulder TECHNIQUE: Noncontrast oblique coronal T2 fast spin echo with fat saturation, oblique sagittal T1 spin echo and T2 fast spin echo with fat saturation, axial T1 spin echo and T2 fast spin echo with fat saturation through the shoulder. COMPARISON: None. FINDINGS: Image quality: Excellent. Rotator cuff: Moderate grade articular and bursal surface partial thickness tear involving distal supraspinatus at its insertion on the humeral head is seen extending to musculotendinous junction. Distal infraspinatus tendinosis is noted. Distal subscapularis tendon is intact. Sagittal images demonstrate no significant rotator cuff muscle atrophy. Bones and bursae: No bone marrow contusions or fractures. [id number] acromioclavicular joint osteoarthritic changes are seen with joint space narrowing, subchondral sclerosis and downward osteophyte formation depressing the musculotendinous junction of supraspinatus. Moderate glenohumeral joint osteoarthritic changes also seen with significant joint space narrowing and inferior marginal osteophyte formation. Small to moderate amount of subacromial subdeltoid bursal fluid is seen, no gross loose bodies. Capsule and soft tissues: Signal abnormality and contour irregularity involving superior anterior labrum at 12 to 2 o'clock position is noted suggestive of superior anterior labral tear. Similar signal abnormality involving anterior inferior labrum at 5 to 6 o'clock position is also noted. The long head of the biceps tendon is markedly thickened with intrasubstance T2 hyperintense signal. The rotator interval appears normal, without fibrosis. The coracohumeral ligament is normal in thickness. IMPRESSION: 1. Moderate grade articular and bursal surface partial thickness tear involving distal supraspinatus extending to musculotendinous junction. Distal infraspinatus tendinosis. No full-thickness rotator cuff tendon rupture. No significant muscle atrophy. 2. 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 No fracture or dislocation. Small to moderate amount of subacromial subdeltoid bursal fluid. No gross loose bodies. 3. Suggestion of superior anterior labral tear at 12 to 2 o'clock position and anterior-inferior labral tear at 5 to 6 o'clock position. 4. Tendinosis and low-grade intrasubstance partial-thickness tear involving proximal long head of biceps. Dictated by: Gage Dan M.D. on 03/27/2023 at 15:04 Approved by: Gage Dan M.D. on 03/27/2023 at 15:06
== END ==
PROVIDERS: PCP Family Medicine; Referring Provider Orthopaedic Surgery; Visit Provider Orthopaedic Surgery
DX: M75.111 Incomplete rotator cuff tear or rupture of right shoulder, not specified as traumatic (principal); M19.011 Primary osteoarthritis, right shoulder; S46.111A Strain of muscle, fascia and tendon of long head of biceps, right arm, initial encounter
CPT/HCPCS: 73221

== ENCOUNTER → 2023-11-16 07:02 | Outpatient (CLI) | payer MEDICARE, OTHER, SELFPAY ==
[2023-11-16 08:10] LABS: Hemoglobin A1C% w Est Avg Glu 5.2 % (4.0-6.0)
[2023-11-16 08:33] LABS: Alanine Aminotransferase 12 IU/L (<50); Albumin 3.8 g/dL (3.5-5.0); Albumin Globulin Ratio 1.5 (1.0-2.8); Alkaline Phosphatase 55 U/L (38-126); Aspartate Aminotransferase 24 IU/L (17-59); BUN Creatinine Ratio 30.1 (6-22); Bilirubin Total 0.6 mg/dL (0.2-1.3); Blood Urea Nitrogen 22 mg/dL (9-20); Calcium 9.2 mg/dL (8.4-10.2); Carbon Dioxide 25 mmol/L (22-32); Chloride 104 mmol/L (98-107); Cholesterol 161 mg/dL (140-199); Estimated Glomerular Filt Rate > 60 mL/min (>60); Globulin 2.6 g/dL (1.7-4.1); Glucose 97 mg/dL (80-110); HDL Cholesterol 65 mg/dL (40-60); HEMOLYSIS < 15 (0-50); LDL Cholesterol Calculated 88 mg/dL (<100); Potassium 4.3 mmol/L (3.4-5.1); Sodium 137 mmol/L (137-145); Total Protein 6.4 g/dL (6.3-8.2); Triglycerides 39 mg/dL (35-150)
[2023-11-16 09:24] LABS: Hep C Virus Ab w/Reflex Quant NEGATIVE s/c (NEGATIVE)
== END ==
LOC: LAB 07:03
PROVIDERS: PCP Family Medicine; Referring Provider Family Medicine; Visit Provider Family Medicine
DX: Z00.00 Encounter for general adult medical examination without abnormal findings (principal); R73.01 Impaired fasting glucose; I10 Essential (primary) hypertension; E78.2 Mixed hyperlipidemia
CPT/HCPCS: 36415; 80053; 80061; 83036; 86803

== ENCOUNTER → 2024-02-14 11:21 | Outpatient (ROUT) | payer MEDICARE, OTHER, SELFPAY | PROVIDERS: PCP Family Medicine; Visit Provider Dermatology | DX: L02.32 Furuncle of buttock (principal) | CPT/HCPCS: 87070; 87075; 87147; 87205 ==

== ENCOUNTER → 2024-07-18 15:30 | Outpatient (CLI) | payer MEDICARE, OTHER, SELFPAY ==
--- NOTE | 2024-07-18 16:15 | EKG_ITS ---
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
[2024-07-18 16:38] LABS: Add Manual Diff / Slide Review NO; Basophils Absolute Auto 0 /uL (0-100); Basophils Percent Auto 0.8 % (0-2); Eosinophils Absolute Auto 100 /uL (0-450); Eosinophils Percent Auto 1.9 % (2-4); Hematocrit 37.5 % (41-53); Hemoglobin 12.9 g/dL (13.5-17.5); Lymphocytes Absolute Auto 1400 /uL (1100-4500); Lymphocytes Percent Auto 26.3 % (25-40); Mean Corpuscular HGB Conc 34.5 % (30-36); Mean Corpuscular Hemoglobin 31.1 PG (26-34); Mean Corpuscular Volume 90.1 fL (80-100); Monocytes Absolute Auto 500 /uL (0-900); Monocytes Percent Auto 9.5 % (3-14); Neutrophils Absolute Auto 3300 /uL (1500-7000); Neutrophils Percent Auto 61.5 % (50-75); Platelet Count 214 X10^3/uL (150-400); Red Blood Cell Count 4.16 X10^6/uL (4.5-5.9); Red Cell Distribution Width 12.7 % (11.6-14.8); White Blood Cell Count 5.3 X10^3/uL (4.5-11.0)
[2024-07-18 16:45] LABS: Appearance Urine UA CLEAR; Bilirubin Urine UA NEGATIVE (NEGATIVE); Color Urine UA YELLOW; Glucose Urine UA NEGATIVE (Negative); Ketones Urine UA NEGATIVE (NEGATIVE); Leukocyte Esterase Urine UA NEGATIVE (NEGATIVE); Nitrite Urine UA NEGATIVE (Negative); Occult Blood Urine UA NEGATIVE (Negative); Protein Urine UA NEGATIVE (Negative); Specific Gravity Urine UA 1.025 (1.000-1.035); Urobilinogen Urine UA 0.2 E.U./dL (0.2); pH Urine UA 5.5 (4.5-8.0)
[2024-07-18 16:55] LABS: Bacteria Urine None Seen; Culture Indicated Urine Cult Not Indicated; Mucus Urine 1+ (Negative); RBC Urine 0-1/HPF (0-5/HPF); Squamous Epithelial Cell Urine 0-1 /HPF (0-5/HPF); Urine Volume 10mL (spun); WBC Urine 0-1/HPF (0-5/HPF)
[2024-07-18 16:59] LABS: BUN Creatinine Ratio 23.8 (6-22); Blood Urea Nitrogen 19 mg/dL (9-20); Calcium 9.2 mg/dL (8.4-10.2); Carbon Dioxide 27 mmol/L (22-32); Chloride 104 mmol/L (98-107); Estimated Glomerular Filt Rate > 60 mL/min (>60); Glucose 106 mg/dL (80-110); HEMOLYSIS < 15 (0-50); Sodium 136 mmol/L (137-145)
[2024-07-18 17:03] LABS: Hemoglobin A1C% w Est Avg Glu 5.3 % (4.0-6.0)
== END ==
PROVIDERS: PCP Family Medicine; Referring Provider Orthopaedic Surgery; Visit Provider Orthopaedic Surgery
DX: Z01.812 Encounter for preprocedural laboratory examination (principal); R73.9 Hyperglycemia, unspecified; Z01.818 Encounter for other preprocedural examination; N39.0 Urinary tract infection, site not specified
CPT/HCPCS: 36415; 80048; 81001; 83036; 85025; 93005

== ENCOUNTER → 2024-12-15 08:50 | Outpatient (CLI) | payer MEDICARE, OTHER, SELFPAY ==
--- NOTE | 2024-12-15 08:52 | DI.US.S_ITS ---
PROCEDURE: US ABD AORTA ANEURYSM SCREEN INDICATIONS: screening TECHNIQUE: Real time scanning was performed of the aorta and iliac arteries, with image documentation. COMPARISON: None. FINDINGS: Aorta: Proximal aortic diameter measures 2.6 cm. Mid-aorta measures 2.1 cm. Distal aortic diameter is 2.1 cm. Iliac arteries: Right common iliac artery measures 1.3 cm. Left common iliac artery measures 1.4 cm. IMPRESSION: No evidence of abdominal aortic aneurysm. Mild ectasia of the proximal aorta measuring 2.6 cm, 5 year follow-up ultrasound is recommended. Dictated by: Storm Anaya M.D. on 12/15/2024 at 11:47 Approved by: Storm Anaya M.D. on 12/15/2024 at 11:49
== END ==
PROVIDERS: PCP Family Medicine; Referring Provider Family Medicine; Visit Provider Family Medicine
DX: Z13.6 Encounter for screening for cardiovascular disorders (principal); I77.811 Abdominal aortic ectasia
CPT/HCPCS: 76706

== ENCOUNTER → 2025-03-13 18:18 | Outpatient (CLI) | payer MEDICARE, OTHER, SELFPAY ==
--- NOTE | 2025-03-13 18:21 | DI.RAD.S_ITS ---
PROCEDURE: XR FOOT LT MIN 3V INDICATIONS: Dropped board, pain 1-3 distal metatarsal TECHNIQUE: 3 views of the foot were acquired. COMPARISON: None. FINDINGS: Bones: No fractures or dislocations. Osteoarthritic changes are noted throughout left foot. Small plantar and dorsal calcaneal enthesophytes are seen. No suspicious bony lesions. Soft tissues: No tibiotalar joint effusion. Achilles tendon appears normal. IMPRESSION: No acute left foot fracture or dislocation. Left foot joint osteoarthritis. Small calcaneal enthesophytes. No gross soft tissue abnormalities. Dictated by: Gage Dan M.D. on 03/14/2025 at 18:08 Approved by: Gage Dan M.D. on 03/14/2025 at 18:08
== END ==
PROVIDERS: PCP Family Medicine; Referring Provider Nurse Practitioner Family; Visit Provider Nurse Practitioner Family
DX: S90.30XA Contusion of unspecified foot, initial encounter (principal); M19.072 Primary osteoarthritis, left ankle and foot
CPT/HCPCS: 73630

== ENCOUNTER → 2025-07-14 07:13 | Outpatient (CLI) | payer MEDICARE, OTHER, SELFPAY ==
[2025-07-14 08:55] LABS: Hemoglobin A1C% w Est Avg Glu 5.7 % (4.0-6.0)
[2025-07-14 09:13] LABS: Alanine Aminotransferase 12 IU/L (<50); Albumin 4.2 g/dL (3.5-5.0); Albumin Globulin Ratio 1.6 (1.0-2.8); Alkaline Phosphatase 59 U/L (38-126); Blood Urea Nitrogen 16 mg/dL (9-20); Calcium 9.3 mg/dL (8.4-10.2); Carbon Dioxide 24 mmol/L (22-32); Chloride 105 mmol/L (98-107); Cholesterol 165 mg/dL (140-199); Estimated Glomerular Filt Rate > 60 mL/min (>60); Globulin 2.7 g/dL (1.7-4.1); Glucose 98 mg/dL (70-99); HDL Cholesterol 76 mg/dL (40-60); HEMOLYSIS < 15 (0-50); Potassium 4.2 mmol/L (3.4-5.1); Sodium 138 mmol/L (137-145); Total Protein 6.9 g/dL (6.3-8.2); Triglycerides 47 mg/dL (35-150)
== END ==
PROVIDERS: PCP Family Medicine; Referring Provider Family Medicine; Visit Provider Family Medicine
DX: Z00.00 Encounter for general adult medical examination without abnormal findings (principal); R73.01 Impaired fasting glucose; I10 Essential (primary) hypertension; Z12.5 Encounter for screening for malignant neoplasm of prostate; E78.2 Mixed hyperlipidemia; G47.33 Obstructive sleep apnea (adult) (pediatric)
CPT/HCPCS: 36415; 80053; 80061; 83036; G0103